=== PATIENT | female | born 1975 | race Caucasian/White ===

== ENCOUNTER 2022-03-21 08:05 | Outpatient (CLI) | payer OTHER, SELFPAY ==
--- NOTE | 2022-03-21 11:25 | WPDNEUROLOGY ---
Neurology EEG Report General Information Date of Study: 03/21/22 TEST Routine EEG DIAGNOSIS Epilepsy CONDITION OF RECORDING Awake, drowsy, and asleep EEG NUMBER [id number] CLINICAL HISTORY Patient reports she had 2 seizures about a year ago. No problems since then. EEG DESCRIPTION Well-defined posterior dominant rhythm is not observed during wakefulness. There is a well developed anterior-posterior gradient. No significant asymmetries of background activities are noted. With drowsiness there is a mixture of beta, alpha, and theta activity. As the patient enters stage II sleep, symmetrical spindles and K complexes are present. Arousal is unremarkable. There are no epileptiform discharges or seizures during this recording. Photic stimulation did not elicit any abnormal photoparoxysmal response. IMPRESSION This is an abnormal routine EEG due to the lack of a well-defined posterior dominant rhythm. This finding can be seen in the setting of mild encephalopathy. No epileptiform features were noted during the recording. Clinical correlation recommended.
== END 2022-03-21 08:06 | disposition home or self-care (01) ==
PROVIDERS: PCP Family Medicine; Visit Provider Psychiatry & Neurology Neurology
DX: G40.909 Epilepsy, unspecified, not intractable, without status epilepticus (principal); R94.01 Abnormal electroencephalogram [EEG]
CPT/HCPCS: 95816

== ENCOUNTER 2024-12-24 11:38 | Outpatient (CLI) | payer OTHER, SELFPAY ==
--- NOTE | ~2024-12-24 | MR_ITS ---
EXAMINATION: MR brain/brain stem wo/w con DATE: 12/24/2024 13:43 INDICATION: Headache, unspecified. TECHNIQUE: Magnetic resonance imaging (MRI) of the brain and brainstem was performed without and with 20 mL MultiHance intravenous contrast. COMPARISON: None. FINDINGS: There is no intracranial hemorrhage, acute infarction, or abnormal intracranial mass lesion. The ventricles are normal in size. The orbits are normal. There is mild mucosal thickening in the paranasal sinuses. There are bilateral mastoid effusions. IMPRESSION: 1. Normal brain. Reviewed, dictated and finalized at location E. IMPRESSION: 1. Normal brain.
--- OUTSIDE RECORDS SUMMARY | 2024-12-24 13:26 | XMS_ITS | Clinical Summary ---
Author Organization [email or web address] Address [address] [place] [address] Care Team Providers Care Entry Level Machine Operator Name Role Phone Johnna Pagan RN Unavailable Shai Claudio MD Primary Care Provider [phone] Source Comments [facility],non-owned Affiliates and Associated Physician Practices is amultiple site organization consisting of ambulatory clinics and hospital sitesin [place], [place], [place] and [place]. This disclosure is being madepursuant to the Care Everywhere program and may not contain all information available regarding this patient. Last updated 18.[facility] [email or web address] Allergies Active Allergy Reactions Criticality Noted Date Comments Adhesive Sensitivity 03/07/2017 Paper tape Ciprofloxacin 06/26/2013 Erythromycin Other 03/06/2017 Make my stomach hurt Penicillins 06/26/2013 Diclofenac Epolamine 06/26/2013 Medications * Be aware that medications may not be up to date on this document. Alwaysverify current medications with the patient. atenolol (TENORMIN) 25 MG tablet Take 1 (one) tablet by mouth once daily Active allopurinol (ZYLOPRIM) 300 MG tablet Take 1 (one) tablet by mouth once daily Active lisinopril (PRINIVIL; ZESTRIL) 10 MG tablet Take 1 (one) tablet by mouth once daily Active atorvastatin (LIPITOR) 40 MG tablet Take 1 (one) tablet by mouth Active glipiZIDE CR 24hr (Glucotrol XL) 10 MG tablet Take 1 (one) tablet by mouth once daily 07/14/20 23 Active levETIRAcetam (Keppra) 500 MG tablet Take 1 (one) tablet by mouth 2 times daily 04/19/19 23 Active montelukast (Singulair) 10 MG tablet Take 1 (one) tablet by mouth once daily as needed 07/20/19 23 Active QUEtiapine (SEROquel) 200 MG tablet Take 1 (one) tablet by mouth once daily 10/20/19 23 Active rosuvastatin (Crestor) 40 MG tablet Take 1 (one) tablet by mouth once daily 10/14/19 23 Active sertraline (Zoloft) 50 MG tablet Take 1 (one) tablet by mouth once daily 09/07/19 23 Active Blood Glucose Monitoring Suppl (Blood Glucose Monitor System) w/Device KITIndications: Type 2 diabetes mellitus with other specified complication, unspecified whether intermediate frame tender insulin use (HCC) Use 1 Each as directed 1 Each 03/22/20 24 Active lancetsIndicati ons:Type 2 diabetes mellitus with other specified complication, unspecified whether half-way insulin use (HCC) Use 1 (one) Each once daily 100 Each 11 03/22/20 24 Active blood glucose test stripIndication s:Type 2 diabetes mellitus with other specified complication, unspecified whether intermediate frame tender insulin use (HCC) Use 1 (one) strip as directed 50 strip 3 03/22/20 24 Active empagliflozin (Jardiance) 25 MG tablet Take 1 (one) tablet by mouth once daily 30 tablet 3 09/06/19 25 Active metFORMIN ER 24hr (Glucophage XR) 500 MG tablet Take 2 (two) tablets by mouth 2 times daily 120 tablet 11 10/05/19 25 026 Active dulaglutide (Trulicity) 4.5 MG/0.5ML injectionIndica tions:Type 2 diabetes mellitus with other specified complication, unspecified whether intermediate frame tender insulin use (HCC) Inject 4.5 (four and one-half) mg subcutaneously every 7 days (once a week) 2 mL 1 11/29/19 25 Active dulaglutide (Trulicity) 4.5 MG/0.5ML injectionIndica tions:Type 2 diabetes mellitus with other specified complication, unspecified whether intermediate frame tender insulin use (HCC) Inject 4.5 (four and one-half) mg subcutaneously every 7 days 2 mL 5 06/28/19 25 025 Discontin ued(Reord er) Active Problems Problem Noted Date Diagnosed Date Class 3 severe obesity with serious comorbidity and body mass index (BMI) of 45.0 to 49.9 in adult 01/11/2023 Metabolic syndrome 01/11/2023 Type 2 diabetes mellitus with other specified co mplication 01/11/2023 Elevated liver enzymes 11/09/2022 Knee pain 06/26/2013 Encounters Date Type Department Care Team Description 11/28/2024 Refill [facility] - Internal Med [address] [place] [address], [place] [address] Katerine Schafer PA-C MEDICATION REFILL 10/03/2024 Refill [facility] - GI [address] [place] [address], [place] [address] Lisa Anders, ASSISTANT MANAGER REFILL from Last 3 Months Family History Medical History Relation Name Comments Cancer - Colon Maternal Grandmother Relation Name Status Comments Maternal Grandmother Social History Tobacco Use Types Packs/Day Years Used Date Smoking Tobacco: Never Smokeless Tobacco: Never Tobacco Cessation:Counseling Given: Not Answered Alcohol Use Standard Drinks/Week Comments No 0 (1 standard drink = 0.6 oz pur e alcohol) Comments No Sex and Gender Information Value Date Recorded Sex Assigned at Not on file Legal Sex Female 12:57 AM KINDERG[employer] INSTRUCTIONAL ASSISTANT Gender Identity Female 03/07/2017 6:15 AM KINDERGARTEN INSTRUCTIONAL ASSISTANT Sexual Orientation Not on file Last Filed Vital Signs Vital Sign Reading Time Taken Comments Blood Pressure 153/79 03/22/2024 9:19 AM KINDERGARTEN INSTRUCTIONAL ASSISTANT Pulse 83 03/22/2024 9:19 AM KINDERGARTEN INSTRUCTIONAL ASSISTANT Temperature 37.1 C (98.7 F) 01/11/2023 1:00 PM CDT Respiratory Rate 29 12/09/2022 1:15 PM CDT Oxygen Saturation 99% 03/22/2024 9:19 AM KINDERGARTEN INSTRUCTIONAL ASSISTANT Inhaled Oxygen Concentration - - Weight 114 kg (251 lb 6.4 oz) 03/22/2024 9:19 AM KINDERGARTEN INSTRUCTIONAL ASSISTANT Height 160 cm (5' 3) 03/22/2024 9:19 AM KINDERGARTEN INSTRUCTIONAL ASSISTANT Body Mass Index 44.53 03/22/2024 9:19 AM KINDERGARTEN INSTRUCTIONAL ASSISTANT Plan of Treatment Upcoming Encounters Date Type Department Care Team (Late st Contact Info) Description 01/01/2025 1:00 PM CDT Office Visit [facility] - [facility] [address], [place] [phone] Katerine Schafer PA-C [address] [facility] [place] [address] Health Maintenance Due Date Last Done Comments COLOGUARD (AGES 45-75) - COLON CA SCREENING 1977 COLON MONITORING 1977 COLONOSCOPY - COLON CA SCREENING 1977 CT COLONOGRAPHY - COLON CA SCREENING 1977 Colorectal Cancer Screening 1977 FIT - COLON CA SCREENING 1977 FLEX SIG - COLON CA SCREENING 1977 HIV SCREENING 1992 DTAP/TDAP/TD VACCINES (1 - Tdap) 1996 HEPATITIS B VACCINE (1 of 3 - 19+ 3-dose series) 1996 PNEUMOCOCCAL VACCINE (1 of 2 - PCV) 1996 PAP SMEAR 1998 MAMMOGRAM 01/17/2021 01/17/2019, 12/25/2017 DIABETES RETINOPATHY SCREENING 01/11/2023 DIABETES-FOOT EXAM WITH MONOFILAMENT 01/11/2023 DEPRESSION SCREENING 04/17/2024 DIABETES - URINE PROTEIN SCREENING 04/17/2024 COVID-19 VACCINE ( season) 2024 INFLUENZA VACCINE (#1) 2024 , 12/31/2021, 01/18/2021, Additional history exists DIABETES-HGB A1C 01/03/2025 07/03/2024, , 03/18/2024, Additional history exists DIABETES-SERUM CREATININE 07/03/20252024, 03/18/2024, 03/18/2024, Additional history exists ZOSTER VACCINE (1 of 2) 07/24/2027 HEPATITIS C SCREENING Completed 09/27/2021 HIB VACCINE Aged Out No longer eligi ble based on patient's age to complete this topic HPV VACCINE Aged Out No longer eligi ble based on patient's age to complete this topic MENINGOCOCCAL (Group B) VACCINE SHARED DECISION-MAKING Aged Out No longer eligible based on patient's age to complete this topic MENINGOCOCCAL GROUPS A/C/Y/W VACCINE Aged Out No longer eligible based on patient's age to complete this topic Goals Goal Patient Goal Type Associated Problems Recent Progress Patient-Stated? Author Medication Management General On track( 024 9:18 AM KINDERGARTEN INSTRUCTIONAL ASSISTANT) Lizette Connelly, RN Note: Expected end date: ongoing Interventions: Take all medications as prescribed Procedures Procedure Name Priority Date/Time Associated Diagnosis Comments BASIC METABOLIC PANEL (CALCIUM TOTAL) STAT 12/09/2022 7:43 AM CDT Elevated liver enzymes MAMMO BILAT SCREENING Routine 01/17/2019 9:39 AM CDT Screening breast examination from Last 3 Months or Most Recently Relevant to Health Maintenance Results * (ABNORMAL) BASIC METABOLIC PANEL (CALCIUM TOTAL) (12/09/2022 7:43 AM CDT) BUN 15 7 - 26 mg/dL 12/09/2022 8:[address] [facility] Creatinine 0.60 0.56 - 0.96 mg/dL 12/09/2022 8:[address] [facility] Sodium 137 136 - 145 mmol/L 12/09/2022 8:[address] [facility] Potassium 4.1 3.5 - 4.5 mmol/L 12/09/2022 8:[address] [facility] Chloride 104 98 - 107 mmol/L 12/09/2022 8:31 AM [facility] CO2 25 22 - 29 mmol/L 12/09/2022 8:[address] [facility] Glucose 125(H) 70 - 115 mg/dL 12/09/2022 8:[address] [facility] Calcium 8.6 8.4 - 10.2 mg/dL 12/09/2022 8:[address] [facility] Anion Gap 12 8 - 18 12/09/2022 8:[address] [facility] BUN/Creatinine Ratio 25(H) 7 - 23 12/09/2022 8:31 AM CDT [facility] Osmolality Calculated 286 270 - 300 mOsm/kg 12/09/2022 8:31 AM CDT [facility] eGFR by CKD-EPI >90 >=90 mL/min/1.7 3 m2 12/09/2022 8:31 AM CDT [facility] Blood BLOOD SPECIMEN / Unknown Venipuncture / Unknown 12/09/2022 7:43 AM CDT 12/09/2022 7:55 AM CDT Alejandro Ramirez MD LAB - CHEMISTRY ORDERABLES Final Result [facility] [address] [place] [address], [facility] [phone] * MAMMO BILAT SCREENING (01/17/2019 9:39 AM CDT) Anatomical Region Laterality Modality Breast Bilateral Mammography 01/17/2019 9:47 AM CDT Impressions 01/17/2019 9:50 AM CDT IMPRESSION: No mammographic evidence of malignancy. ASSESSMENT: BI-RADS Category 1: Negative mammogram. RECOMMENDATION: Bilateral screening mammogram in one year. This report was electronically signed by JAYE BYRNES M.D. on 01/17/2019 9:50 AM . Narrative 01/17/2019 9:50 AM CDT BILATERAL SCREENING MAMMOGRAM DATE: 01/17/2019. COMPARISON: Multiple prior mammograms, most recently 12/25/2017 and dating back to 12/17/2016. HISTORY: Screening mammogram. TECHNIQUE: Images were performed using 3D tomosynthesis images with reconstructed/synthetic 2D images and CAD analysis. BREAST COMPOSITION: There are scattered areas of fibroglandular density. FINDINGS: There is no suspicious mass, clustered microcalcification, or architectural distortion in either breast on 2D or 3D images. There has been no change in the mammographic appearance compared with the prior study. Nam Branch MD MAMMO ORDERABLES Final Result from Last 3 Months or Most Recently Relevant to Health Maintenance Insurance [facility] MEDICAID - [place] MEDICAID [facility] Care Teams Entry Level Machine Operator Relationship Specialty Start Date End Date Shai Bhandari MD [address] [place] [address] PCP - General Family Medicine 11/09/22 Johnna Pagan, RN Registered Nurse 03/07/17
[2024-12-25 15:09] LABS: CMV Quant DNA PCR, Plasma Negative (Negative)
[2024-12-28 20:07] LABS: West Nile Virus Source Serum (.); West Nile Virus by PCR Not Detected (.)
== END 2024-12-24 11:39 | disposition home or self-care (01) ==
LOC: ANHIMG 11:39
PROVIDERS: PCP Family Medicine; Visit Provider Psychiatry & Neurology Neurology
DX: R51.9 Headache, unspecified (principal); E11.9 Type 2 diabetes mellitus without complications; G40.909 Epilepsy, unspecified, not intractable, without status epilepticus
CPT/HCPCS: 70553; 87497; 87798; A9577